=== PATIENT | female | born 1980 | race Caucasian/White ===

== ENCOUNTER 2016-05-30 23:12 | Emergency (ER) | payer BC ==
[~2016-05-30] VITALS: Ht 167.6 cm; Wt 81.0 kg
[2016-05-30 23:53] LABS: EOSINOPHIL (%) 1.3 % (0-5); EOSINOPHIL COUNT 0.1 K/uL (0-0.3); HEMATOCRIT 36.1 % (36.0-46.0); IMMATURE GRANULOCYTE (%) 0.1 % (0.0-0.7); IMMATURE GRANULOCYTE COUNT 0.1 K/uL; MCH 30.6 PG (29.0-34.0); MCHC 33.8 G/DL (30.0-36.0); MCV 90.5 FL (83-99); MEAN PLAT.VOLUME 10.3 uM^3 (9.5-12.4); MONOCYTE (%) 7.4 % (3-12); MONOCYTE COUNT 0.7 K/uL (0-0.8); NEUTROPHIL (%) 48.5 % (45-76); NEUTROPHIL COUNT 4.6 K/uL (1.8-6.4); PLATELET COUNT 224 K/uL (156-360); RBC DIS.WIDTH-SD 38.4 % (39-53); RED BLOOD COUNT 3.99 M/uL (3.80-5.20); WHITE BLOOD COUNT 9.5 K/uL (4.1-10.2)
[2016-05-31 00:04] LABS: CHLORIDE 106 mEq/L (99-109); POTASSIUM 3.5 mEq/L (3.7-5.4); SODIUM 140 mEq/L (136-147)
[2016-05-31 00:06] LABS: GLUCOSE 97 mg/dL (70-99)
[2016-05-31 00:07] LABS: ANION GAP 9 MEQ/L (2-14)
[2016-05-31 00:10] LABS: GFR ESTIMATE (CALCULATED) > 59 mL/min/; UREA NITROGEN (BUN) 11 mg/dL (9-23)
[2016-05-31 00:12] LABS: CREATINE KINASE 67 IU/L (1-294)
[2016-05-31 00:19] LABS: QUANTITATIVE HCG < 4.0 MIU/ML
[2016-05-31 00:51] LABS: ADD MIUA? NO; BILIRUBIN NEGATIVE; BLOOD NEGATIVE; COLOR YELLOW ((YELLOW)); GLUCOSE (STRIP) NEGATIVE; KETONES NEGATIVE; LEUKOCYTES NEGATIVE; NITRITE NEGATIVE; PROTEIN (STRIP) NEGATIVE; SPECIFIC GRAVITY 1.012 (1.000-1.030); UCUL ADDED? NO; UROBILINOGEN 0.2 MG/DL (0.2-1.0)
[2016-05-31] MEDS ORDERED: SPIRONOLACTONE50 MG PO (02:07)
[2016-05-31] MEDS ORDERED: TRAMADOL HCL50 MG PO (02:07)
[2016-05-31] MEDS ORDERED: VYVANSE30 MG PO (02:07)
[2016-05-31] MEDS ORDERED: METHYLPHENIDATE27 MG PO (02:08)
[2016-05-31] MEDS ORDERED: ESCITALOPRAM OX10 MG PO (02:08)
[2016-05-31] MEDS ORDERED: CLONAZEPAM0.5 MG PO (02:08)
[2016-05-31] MEDS ORDERED: VALIUM5 MG PO (03:22)
[2016-05-31] MEDS ORDERED: NORCO 5/3251 TABLET PO (03:22)
[2016-05-31] MEDS ORDERED: LIDOCAINE700 MG TD (03:22)
[2016-05-31 03:49] VITALS: BP 121/65
== END 2016-05-31 03:57 | disposition home or self-care (01) ==
LOC: EME 23:12
PROVIDERS: Emergency Medicine
DX: M54.16 Radiculopathy, lumbar region (principal); M25.551 Pain in right hip; M25.552 Pain in left hip
CPT/HCPCS: 72220; 73522; 80048; 81003; 82550; 84702; 85025; 99281; 99284; J1100; J1170; J1885